=== PATIENT | male | born 1950 | race Caucasian/White ===

== ENCOUNTER 2024-11-25 12:16 | Emergency (ER) | payer MEDICARE, OTHER ==
[2024-11-25] MEDS ORDERED: Morphine 4 MG/ML VIAL ONE ×3 (12:53→14:19)
[2024-11-25] MEDS ORDERED: Ondansetron PF 4 MG/2 ML Vial ONE (12:53)
[2024-11-25 13:02] LABS: #Basophils Less than 0.03 10x3/uL (0.0-0.2); %Basophils 0.2 % (0.0-1.0); %Eosinophils 1.2 % (0.0-10.0); %Monocytes 7.9 % (0.0-10.0); %Neutrophils 69.7 % (42.0-75.0); Hematocrit 45.5 % (42.0-52.0); Hemoglobin 14.8 g/dL (14.0-18.0); Mean Corpuscular HGB CONC 32.5 g/dL (32.0-36.0); Mean Corpuscular Hemoglobin 30.6 pg (27.0-31.0); Mean Corpuscular Volume 94.2 fL (78.0-98.0); Mean Platelet Volume 11.2 fL (7.4-10.4); Platelet Count 155 10x3/uL (130-400); RBC Distribution Width 13.7 % (11.5-14.5); Red Blood Cell (RBC) Count 4.83 mill/uL (4.70-6.10)
[2024-11-25 13:30] LABS: ALT (SGPT) 36 U/L (8-55); AST (SGOT) 32 U/L (5-34); Alkaline Phosphatase 77 U/L (40-110); Anion Gap 11 mmol/L (10-20); BUN (Urea Nitrogen) 21 mg/dL (8.4-25.7); Bilirubin, Total 0.5 mg/dL (0.2-1.2); Calc. Creatinine Clearance 0 mL/min (70-130); Calcium 9.3 mg/dL (7.8-10.44); Carbon Dioxide 23 mmol/L (23-31); Chloride 110 mmol/L (98-107); Estimated GFR 65; Globulin 3.5 g/dL (2.4-3.5); Glucose 90 mg/dL (83-110); Protein, Total 7.5 g/dL (5.8-8.1); Sodium 140 mmol/L (136-145)
[2024-11-25 13:49] LABS: Bilirubin Negative (Negative); Blood, Urine 3+ (Negative); CAUTI Indications for Culture Pelvic or flank pain; Clarity Clear (Clear); Glucose, Urine (Dipstick) Normal (Negative); Ketone, Urine Negative (Negative); Leukocyte Negative Leu/uL (Negative); Nitrite Negative (Negative); Protein, Urine (Dipstick) 100 mg/dL (Neg-Trace); Specific Gravity, Urine 1.021 (1.002-1.036); Squamous Epithelial None Seen HPF (0-3); Urobilinogen Normal mg/dL (Less than 2); pH, Urine 5.5 (5.0-9.0)
[2024-11-25 14:03] LABS: Bacteria/HPF Rare-Few HPF (None Seen); RBC/HPF 21-50 HPF (0-3); Yeast-Budding 1+ HPF (None Seen)
[2024-11-25 14:04] LABS: Urine Culture Reflex No No
[2024-11-25] MEDS ORDERED: Ketorolac Tromethamine 30 MG (1 mL) VIAL ONE (15:33)
[2024-11-25] MEDS ORDERED: Fluconazole 100 MG TAB ONE (16:48)
== END 2024-11-25 16:56 | disposition home or self-care (01) ==
LOC: ERS 12:16
DX: N13.2 Hydronephrosis with renal and ureteral calculous obstruction (principal); B37.9 Candidiasis, unspecified; N39.0 Urinary tract infection, site not specified
CPT/HCPCS: 74176; 80053; 81001; 85025; J1885; J2272; J2405; 36415; 96374; 96375; 96376

== ENCOUNTER 2024-12-12 12:04 | Outpatient (CLI) | payer MEDICARE, OTHER ==
[2024-12-12 12:51] LABS: #Basophils 0.04 10x3/uL (0.0-0.2); %Basophils 0.6 % (0.0-1.0); %Eosinophils 1.2 % (0.0-10.0); %Lymphocytes 26.4 % (21.0-51.0); %Monocytes 8.5 % (0.0-10.0); %Neutrophils 62.7 % (42.0-75.0); Hematocrit 47.6 % (42.0-52.0); Hemoglobin 15.6 g/dL (14.0-18.0); Mean Corpuscular HGB CONC 32.8 g/dL (32.0-36.0); Mean Corpuscular Volume 94.4 fL (78.0-98.0); Mean Platelet Volume 11.4 fL (7.4-10.4); Platelet Count 157 10x3/uL (130-400); RBC Distribution Width 14.1 % (11.5-14.5); Red Blood Cell (RBC) Count 5.04 mill/uL (4.70-6.10)
[2024-12-12 13:05] LABS: PTT 31.3 sec (22.9-36.1); Prothrombin Time 13.1 sec (12.0-14.7)
[2024-12-12 13:14] LABS: Bacteria/HPF None Seen HPF (None Seen); Bilirubin Negative (Negative); Blood, Urine Negative (Negative); Clarity Clear (Clear); Glucose, Urine (Dipstick) Normal (Negative); Ketone, Urine Negative (Negative); Leukocyte Negative Leu/uL (Negative); Nitrite Negative (Negative); Protein, Urine (Dipstick) Negative (Neg-Trace); RBC/HPF 0-3 HPF (0-3); Specific Gravity, Urine 1.023 (1.002-1.036); Squamous Epithelial None Seen HPF (0-3); Urobilinogen Normal mg/dL (Less than 2)
[2024-12-12 13:29] LABS: Anion Gap 12 mmol/L (10-20); BUN (Urea Nitrogen) 26 mg/dL (8.4-25.7); Calc. Creatinine Clearance 0 mL/min (70-130); Calcium 9.3 mg/dL (7.8-10.44); Carbon Dioxide 25 mmol/L (23-31); Chloride 108 mmol/L (98-107); Estimated GFR 70; Glucose 96 mg/dL (83-110); Potassium 4.6 mmol/L (3.5-5.1); Sodium 140 mmol/L (136-145)
== END 2024-12-12 12:05 | disposition home or self-care (01) ==
LOC: LABBT 12:04
PROVIDERS: ATTEND Urology
DX: Z01.818 Encounter for other preprocedural examination (principal); N20.0 Calculus of kidney; N40.1 Benign prostatic hyperplasia with lower urinary tract symptoms; N13.8 Other obstructive and reflux uropathy
CPT/HCPCS: 80048; 81001; 85025; 85610; 85730; 87086; 93005; 93010

== ENCOUNTER 2024-12-23 08:18 | Day surgery (SDC) | payer MEDICARE, OTHER ==
[2024-12-12 12:23] VITALS: BMI 24.4
[2024-12-23] MEDS ORDERED: Lidocaine 1% PF 5 ML VIAL ONE (08:57)
[2024-12-23] MEDS ORDERED: Ondansetron PF 4 MG/2 ML Vial ONE (08:57)
[2024-12-23] MEDS ORDERED: fentaNYL PF 100 MCG/2 ML SYRINGE ONE ×3 (08:57→13:29)
[2024-12-23] MEDS ORDERED: PROPOFOL 20 ML ONE ×3 (08:57→12:03)
[2024-12-23] MEDS ORDERED: cefTRIAXone (ROCEPHIN) 1 GM VIAL ONE (09:28)
[2024-12-23] MEDS ORDERED: Sodium Chloride 0.9% 100 ML ONE (09:28)
[2024-12-23] MEDS ORDERED: Iopamidol 0 ML ONE (11:04)
[2024-12-23] MEDS ORDERED: Dexamethasone 20 MG/5 ML VIAL ONE (11:25)
[2024-12-23] MEDS ORDERED: Oxybutynin 5 MG TAB ONE (13:24)
[2024-12-23] MEDS ORDERED: Phenazopyridine HCl 100 MG TAB ONE (13:24)
[2024-12-23] MEDS ORDERED: Morphine 2 MG/ML VIAL ONE (16:13)
[2024-12-23] MEDS ORDERED: Promethazine HCl 25 MG/ML VIAL ONE (16:24)
[2024-12-23] MEDS ORDERED: HYDROcodone/Acetaminophen 5/325 mg Tablet ONE (18:29)
== END 2024-12-23 20:08 | disposition home or self-care (01) ==
LOC: SDC 08:18
PROVIDERS: ATTEND Urology
PROC: 0T778DZ Dilation of Left Ureter with Intraluminal Device, Via Natural or Artificial Opening Endoscopic (ICD-10-PCS; principal; 2024-12-23)
PROC: 0TCB8ZZ Extirpation of Matter from Bladder, Via Natural or Artificial Opening Endoscopic (ICD-10-PCS; 2024-12-23)
PROC: 0TC78ZZ Extirpation of Matter from Left Ureter, Via Natural or Artificial Opening Endoscopic (ICD-10-PCS; 2024-12-23)
PROC: 0T778DZ Dilation of Left Ureter with Intraluminal Device, Via Natural or Artificial Opening Endoscopic (ICD-10-PCS; 2024-12-23)
DX: N20.0 Calculus of kidney (principal); N21.0 Calculus in bladder; N40.1 Benign prostatic hyperplasia with lower urinary tract symptoms; N13.8 Other obstructive and reflux uropathy; Z98.890 Other specified postprocedural states; Z90.89 Acquired absence of other organs
CPT/HCPCS: 52318; 52356; 52601; 82365; C1713; C1769 ×2; C2617; J0696; J2272; J2405; J2550; J2704; 88300; J1100; Q9967